=== PATIENT | male | born 1980 | race Caucasian/White ===

== ENCOUNTER 2019-07-01 11:15 | Outpatient (REF) | payer SELFPAY ==
[2019-07-03 11:08] LABS: Appearance Normal; Container Type 50 mL Conical; Double Forms 0.5 %; Grade 3.5 (>=2.5); Head Shape Abnormal 17.5 %; Midpiece Defect 8.5 %; Motile/Ejaculate 23.3 x10(6) (>=9.0); Motile/mL 15.5 x10(6) (>=6.0); Motility 14 % (>=40); Semen Volume 1.5 mL (>=1.5); Sperm/mL 110.7 x10(6) (>=15.0); Strict Morph NL 2.5 % (>=4.0); Study Type Semen; Supravital Stain 42 % live (>=58); pH 8.5 (>=7.2)
== END 2019-07-01 11:35 ==
LOC: LBN 11:15
PROVIDERS: PCP Nurse Practitioner Women's Health; Visit Provider Nurse Practitioner Women's Health
DX: N46.9 Male infertility, unspecified (principal)
CPT/HCPCS: 89240; 89310

== ENCOUNTER 2019-07-29 10:27 | Outpatient (REF) | payer OTHER, SELFPAY ==
[2019-07-30 15:54] LABS: Appearance Normal; Container Type 50 mL Conical; Grade 2.5 (>=2.5); Motile/Ejaculate 84.8 x10(6) (>=9.0); Motile/mL 42.4 x10(6) (>=6.0); Motility 43 % (>=40); Sperm/mL 98.7 x10(6) (>=15.0); Study Type Semen
[2019-07-31 14:42] LABS: Acrosom Defect 20.5 %; Double Forms 0.5 %; Head Shape Abnormal 33.5 %; Head Size Abnormal 0.5 %
== END 2019-07-29 10:47 ==
LOC: LBN 10:27
PROVIDERS: PCP Nurse Practitioner Women's Health; Visit Provider Nurse Practitioner Women's Health
DX: N46.9 Male infertility, unspecified (principal)
CPT/HCPCS: 89240; 89310